=== PATIENT | male | born 1955 | race Caucasian/White ===

== ENCOUNTER 2017-09-16 08:12 | Emergency (ER) | payer MEDICAID, OTHER ==
[2017-09-16 08:31] VITALS: BP 146/89
--- NOTE | 2017-09-16 09:11 | UC ---
Lower Extremity/Ankle HPI - HPI Summary HPI Summary: left foot pain over the metatarsals dorsally. Atraumatic. No pcp. He is not aware of being a diabetic. No fever or chills. He quit tob in the 70s. He is retired. He had gout many years ago. It has been swollen and tender since thursday and is getting worse. - History of Current Complaint Chief Complaint: UCLowerExtremity Stated Complaint: LEFT FOOT COMPLAINT Time Seen by Provider: 09/16/17 08:56 Hx Obtained From: Patient, Family/Puff Ironer Onset/Duration: Gradual Onset, Lasting Days Severity Initially: Moderate Severity Currently: Severe Pain Intensity: 8 Aggravating Factor(s): Standing, Ambulation Alleviating Factor(s): Rest, Elevation Able to Bear Weight: No - Allergies/Home Medications Allergies/Adverse Reactions: Allergies Allergy/AdvReac Type Severity Reaction Status Date / Time No Known Allergies Allergy Verified 08/07/16 15:04 PMH/Surg Hx/FS Hx/Imm Hx Previously Healthy: No - gout. prior smoker. - Surgical History Surgical History: Yes Surgery Procedure, Year, and Place: LEFT WRIST FX. Rt SHOULDER - RTC AND BICEP INSERTION - [facility] - Family History Known Family History: Positive: None - Social History Occupation: Retired Lives: With Family Alcohol Use: Daily Alcohol Amount: 1-2 BEERS PER DAY Substance Use Type: None Smoking Status (MU): Former Smoker Amount Used/How Often: 1 PPD X <10 YEARS When Did the Patient Quit Smoking/Using Tobacco: 1977 - Immunization History Most Recent Tetanus Shot: UNKNOWN Review of Systems Constitutional: Negative Musculoskeletal: Arthralgia All Other Systems Reviewed And Are Negative: Yes Physical Exam Triage Information Reviewed: Yes Appearance: Well-Appearing, No Pain Distress, Well-Nourished Vital Signs: Initial Vital Signs Temp 98.7 F 09/16/17 08:23 Pulse 94 09/16/17 08:23 Resp 16 09/16/17 08:23 BP 146/89 09/16/17 08:23 Pulse Ox 99 09/16/17 08:23 Vital Signs Reviewed: Yes Eyes: Positive: Conjunctiva Clear ENT: Positive: Normal ENT inspection Neck: Positive: Supple, Nontender, No Lymphadenopathy Respiratory: Negative: Respiratory distress, Accessory muscle use Cardiovascular: Positive: Brisk Capillary Refill, Other: - katie post tibialis pulses 2+ Abdomen Description: Negative: Distended Musculoskeletal Exam: Other - swelling, pinkness, tenderness diffusely over the left foot. Mainly over the 1st metatarsal. Mild swelling and tenderness over the 1st MTP joint as well. No streaking or fluctuance. Neurological: Positive: Alert, Muscle Tone Normal. Negative: Fatigued Psychological: Positive: Normal Response To Family, Age Appropriate Behavior Skin: Negative: rashes Lower Extremity Course/Dx - Course Course Of Treatment: No pcp, we wonder about undiagnosed DM. No signs of vascular compromise. This is most c/w with gout at this point. We will be careful with meds as we do not know his renal status. He agrees to f/u with new pcp. Pcp list given to pt and his . As he has no immediate follow up at this point we will also add antibiotics for the possibility of infection. Random BG is 280s. he may have DM. X ray does not show charcot foot or metastatic disease or pathologic fracture. - Differential Dx/Diagnosis Provider Diagnoses: gout. foot pain and swelling. possible foot cellulitis. Discharge - Sign-Out/Discharge Documenting (check all that apply): Discharge/Admit/Transfer - Discharge Plan Condition: Good Disposition: HOME Prescriptions: Colchicine* [Colcrys*] 0.6 mg PO BID #2 tab Naproxen [Naproxen 500 mg tab] 500 mg PO BID #10 tablet. Sulfamethox/Trimethoprim DS* [Bactrim DS 800/160 TAB*] 1 tab PO BID #20 tab Patient Education Materials: Swollen Joint (ED), Arthralgia (ED), Metatarsalgia (DC) Referrals: No Primary Care Phys,NOPCP [Primary Care Provider] - Additional Instructions: Go to the ED for any worsening symptoms. You need a primary care doctor. Use the paper I have given you to find one today. - Billing Disposition and Condition Condition: GOOD Disposition: Home
--- NOTE | 2017-09-16 09:23 | RAD ---
Indication: LEFT foot pain, swelling and numbness. Comparison: No relevant prior exams available on the [facility] for comparison. Technique: AP, lateral, and oblique views LEFT foot. Report: Negative for fracture or malalignment. Polyarticular osteoarthritis moderate in severity at the articulation between the bases of the first and second metatarsals and at the first metatarsal phalangeal joint. Moderate Achilles tendon insertion bone spur and soft tissue swelling at the level of the insertional segment of the Achilles tendon. Additionally there is diffuse soft tissue swelling about the forefoot most prominent over the dorsal and plantar aspects. No conspicuous foreign body or subcutaneous emphysema. IMPRESSION: #. Osteoarthritis #. Correlate for potential acute component of insertional Achilles tendinopathy #. Nonspecific forefoot soft tissue swelling
[2017-09-16 13:56] LABS: ABS Basophils 0 10^3/ul (0-0.2); ABS Eosinophils 0.1 10^3/ul (0-0.6); ABS Lymphocytes 1.1 10^3/ul (1.0-4.8); ABS Monocytes 0.4 10^3/ul (0-0.8); ABS Neutrophils 3.5 10^3/ul (1.5-7.7); ABS Nucleated RBC 0 10^3/ul; Eosinophil % 1.8 % (0-6); Hematocrit 46 % (42-52); Hemoglobin 16.3 g/dl (14.0-18.0); Lymphocyte % 20.7 % (25-47); Mean Corpuscular HGB Conc 36 g/dl (31-36); Mean Corpuscular Hemoglobin 32 pg (27-31); Mean Corpuscular Volume 91 fL (80-94); Mean Platelet Volume 8.5 um3 (7.4-10.4); Nucleated Red Blood Cells % 0.2; Platelet Count 160 10^3/ul (150-450); Red Blood Count 5.03 10^6/ul (4.00-5.40); Red Cell Distribution Width 13 % (10.5-15); White Blood Count 5.1 10^3/ul (3.5-10.8)
[2017-09-16 13:58] LABS: EGFR Non-African American 80.3 (>60)
--- NOTE | 2017-09-17 11:33 | UC ---
- Progress Note Progress Note: gluccose 330 --- he has uncontrolled diabetes and needs PCP RENETTA -- I advise to go to emergency room for further labs to ensure the glucose not worsened as if it gets much higher can put patient in to diabetic coma Discharge - Sign-Out/Discharge Documenting (check all that apply): Discharge/Admit/Transfer - Discharge Plan Condition: Good Disposition: HOME Prescriptions: Colchicine* [Colcrys*] 0.6 mg PO BID #2 tab Naproxen [Naproxen 500 mg tab] 500 mg PO BID #10 tablet. Sulfamethox/Trimethoprim DS* [Bactrim DS 800/160 TAB*] 1 tab PO BID #20 tab Patient Education Materials: Arthralgia (ED), Swollen Joint (ED), Metatarsalgia (DC) Referrals: No Primary Care Phys,NOPCP [Primary Care Provider] - Additional Instructions: Go to the ED for any worsening symptoms. You need a primary care doctor. Use the paper I have given you to find one today. - Billing Disposition and Condition Condition: GOOD Disposition: Home
== END 2017-09-16 09:50 | disposition home or self-care (01) ==
LOC: UCCORT 08:12
DX: M10.9 Gout, unspecified (principal); E11.65 Type 2 diabetes mellitus with hyperglycemia; Z87.891 Personal history of nicotine dependence
CPT/HCPCS: 36415; 80053; 84550; 85025; 99212; G0463